=== PATIENT | male | born 1940 | race Caucasian/White ===

== ENCOUNTER 2017-08-01 22:54 | Emergency (ER) | payer SELFPAY ==
[~2017-08-01] VITALS: Ht 170.2 cm; Wt 68.0 kg
[2017-08-02 00:28] LABS: Basophils # (auto) 0 uL; Basophils % (auto) 0.7 % (0.0-2.0); Eosinophils # (auto) 0.2 uL; Eosinophils % (auto) 4.4 % (0.0-7.0); Hematocrit 41.5 % (41.0-53.0); Hemoglobin 13.7 g/dL (13.5-17.5); Lymphocytes # (auto) 1.1 uL; Lymphocytes % (auto) 19.8 % (10.0-50.0); Mean Corpuscular Hgb Conc. 32.9 g/dL (32.0-36.0); Mean Corpuscular Volume 94.4 fL (80.0-100.0); Mean Platelet Volume 6.3 fL (6.9-10.8); Monocytes # (auto) 0.7 uL; Monocytes % (auto) 12.4 % (0.0-12.0); Neutrophils # (auto) 3.4 uL; Neutrophils % (auto) 62.7 % (37.0-80.0); Platelet Count (auto) 294 10^3/uL (140-450); Red Cell Distribution Width 17.7 % (11.8-14.3); White Blood Cell 5.4 10^3/uL (4.4-10.8)
[2017-08-02 00:44] LABS: Albumin 2.8 g/dL (3.4-5.0); Anion Gap 5 (5-15); BUN/Creatinine Ratio 11.7; Blood Urea Nitrogen 13 mg/dL (7-18); Calcium 8.1 mg/dL (8.5-10.1); Carbon Dioxide 30 mmol/L (21-32); Chloride 103 mmol/L (98-107); GFR African American 83 mL/min; GFR Non-African American 68 mL/min; Glucose 140 mg/dL (74-106); Magnesium 2.5 mg/dL (1.6-2.6); Potassium 3.9 mmol/L (3.5-5.1); Sodium 138 mmol/L (136-145)
[2017-08-02 00:48] LABS: INR 0.99 (0.9-1.15); Partial Thromboplastin Time 26.4 sec (22.64-33.71); Prothrombin Time 10.8 sec (9.37-12.3)
[2017-08-02 00:50] LABS: Alkaline Phosphatase 89 U/L (45-117); Aspartate Aminotransferase 22 U/L (15-37); Bilirubin, Total 0.2 mg/dL (0.2-1.0); Total Protein 6.4 g/dL (6.4-8.2)
[2017-08-02 00:54] LABS: B-Type Natriuretic Peptide 75.67 pg/mL (0-100)
[2017-08-02 01:00] LABS: Temperature: 22.1 C (20.0-25.0)
[2017-08-02 05:46] VITALS: BP 173/72
== END 2017-08-02 07:21 | disposition home or self-care (01) ==
LOC: EDBD 22:54 → ER 22:54
DX: J45.901 Unspecified asthma with (acute) exacerbation (principal); R73.9 Hyperglycemia, unspecified; F17.210 Nicotine dependence, cigarettes, uncomplicated
CPT/HCPCS: 36415; 71010; 80053; 83735; 83880; 84484; 85025; 85610; 85730; 93005; 94761

== ENCOUNTER 2019-10-26 19:24 | Inpatient (IN) | payer BC, MEDICAID, OTHER ==
[~2019-10-26] VITALS: Ht 167.6 cm; Wt 71.5 kg
[2019-10-26] MEDS ORDERED: ALBUTEROL SULF 2.5 MG/0.5ML(0.5%) NEB SOLN NEB ONE (20:00)
[2019-10-26] MEDS ORDERED: methylPREDNISolone SOD SUCC 125 MG/2 ML VL IV ONE (20:00)
[2019-10-26] MEDS ORDERED: IPRATROPIUM BROM 0.5 MG/2.5ML INH SOL NEB ONE (20:00)
[2019-10-26 20:24] LABS: Basophils # (auto) 0 10 ^3/uL (0-0.2); Basophils % (auto) 0.6 % (0.0-2.0); Eosinophils # (auto) 0.1 10 ^3/uL (0-0.8); Eosinophils % (auto) 1.5 % (0.0-7.0); Hematocrit 47.4 % (41.0-53.0); Hemoglobin 15.7 g/dL (13.5-17.5); Lymphocytes # (auto) 0.7 10 ^3/uL (0.4-5.4); Lymphocytes % (auto) 9.6 % (10.0-50.0); Mean Corpuscular Hemoglobin 33.1 pg (28.0-32.0); Mean Corpuscular Volume 100.1 fL (80.0-100.0); Monocytes # (auto) 0.7 10 ^3/uL (0-1.3); Monocytes % (auto) 9.6 % (0.0-12.0); Neutrophils # (auto) 5.6 10 ^3/uL (1.6-8.6); Neutrophils % (auto) 78.7 % (37.0-80.0); Nucleated Red Blood Cells % 0.2 %; Platelet Count (auto) 192 10^3/uL (140-450); Red Blood Cells 4.74 10^6/uL (4.5-5.90); Red Cell Distribution Width 13.7 % (11.8-14.3); White Blood Cell 7.1 10^3/uL (4.4-10.8)
[2019-10-26 20:41] LABS: INR 1.13 (0.9-1.15); Partial Thromboplastin Time 25.6 sec (23.64-32.05)
[2019-10-26 21:26] LABS: Albumin 3.4 g/dL (3.4-5.0); Calcium 8.4 mg/dL (8.5-10.1)
[2019-10-26 21:33] LABS: Bilirubin, Total 0.3 mg/dL (0.2-1.0); Total Protein 7.2 g/dL (6.4-8.2)
[2019-10-27] VITALS (8 sets, daily range): BP systolic 118–157; BP diastolic 59–90
[2019-10-27] MEDS ORDERED: TEMAZEPAM 15 MG CAP PO PRN (03:15)
[2019-10-27] MEDS ORDERED: NITROGLYCERIN 0.4 MG SL TAB SL PRN (03:15)
[2019-10-27] MEDS ORDERED: ONDANSETRON HCL 4 MG/2 ML VIAL IV PRN (03:15)
[2019-10-27] MEDS ORDERED: ACETAMINOPHEN 325 MG TAB PO PRN (03:15)
[2019-10-27] MEDS ORDERED: MORPHINE SULF INJ 2 MG/ML SYRINGE 1ML IV PRN (03:15)
[2019-10-27] MEDS ORDERED: MORPHINE SULFATE 4 MG/ML SYR/VIAL IV PRN (03:15)
[2019-10-27] MEDS ORDERED: cloNIDine HCL 0.1 MG TAB PO PRN (03:15)
[2019-10-27] MEDS ORDERED: HYDROcodone-ACET 5/325MG TAB PO PRN (03:15)
--- NOTE | 2019-10-27 04:50 | NUR ---
Telemetry admit from [facility] admitted to Telemetry unit after SBAR received. Patient oriented to GUILLE BRUSH RN primary RN, [facility] unit, room 271, bed B, and unit policies regarding patient care and visiting hours. Patient now on continuous telemetry monitoring, tele box #79 and telemetry reading on arrival to unit is SR. Patient placed on bedside oxygen at 2L via NC, weighed by bedscale and encouraged to call if they need something. All questions and concerns addressed, patient verbalized understanding. Note: HEIMLICH TUBE IN PLACE AND ATTACHED TO OASIS PLEUR EVAC, ATTACHED TO CONTINUOUS SUCTION ORDERED. PATIENT TOLERATING WELL, NO S/S OF DISTRESS OR SOB. WILL CONTINUE TO MONITOR Q1 PRN.
[2019-10-27] MEDS: ALBUTEROL SULF 2.5 MG/0.5ML(0.5%) NEB SOLN NEB SCH ×4 (06:11→22:00)
--- NOTE | 2019-10-27 08:00 | NUR ---
OPENING SHIFT NOTE ASSUMED CARE OF PATIENT AWAKE AND ALERT. NO S/S OF DISTRESS NOTED OR COMPLAINTS OF PAIN. PATIENT IS ON 4L NC SATURATING AT 94% WITH A RESPIRATORY RATE OF 22. PATIENT HAS A URESIL THORAVENT TO HIS LEFT UPPER CHEST HOOKED TO CONTINUOUS SUCTION. PATIENT UPDATED ON POC FOR THE DAY AND ALL QUESTIONS ANSWERED. BED IS IN LOWEST, LOCKED POSITION WITH SIDE RAILS UP X2 AND CALL LIGHT WITHIN REACH. WILL CONTINUE TO MONITOR Q1H AND PRN.
[2019-10-27] MEDS: ASPirin 81 mg TAB PO SCH (09:43)
[2019-10-27] MEDS ORDERED: LISINOPRIL 20 MG TAB PO SCH (10:00)
[2019-10-27] MEDS ORDERED: OPTISON 3ml Vial for INJ IV ONE (11:18)
--- NOTE | 2019-10-27 11:30 | NUR ---
OPTISON OPTISON ECHO PERFORMED AT BEDSIDE WITH ASSOCIATE PARTNER. 1.5ML OF OPTISON GIVEN. NO IMMEDIATE REACTION NOTED. WILL CONTINUE TO MONITOR PATIENT..
--- NOTE | 2019-10-27 14:45 | NUR ---
KAITLIN ANSARI WHILE MOVING PATIENT TO THE WHEELCHAIR TO GO DOWN TO NUC MED HIS CHEST TUBE BECAME DISPLACED SLIGHTLY. NEW DRESSING TEMPORARILY APPLIED AND STAT CHEST XRAY ORDERED. DR AMBROCIO MADE AWARE.
--- NOTE | 2019-10-27 14:55 | NUR ---
AT BEDSIDE DR AMBROCIO AT BEDSIDE UPDATING PATIENT ON POC
[2019-10-27 15:57] LABS: Calcium 8.4 mg/dL (8.5-10.1); Potassium 4.6 mmol/L (3.5-5.1)
[2019-10-27 16:00] LABS: BUN/Creatinine Ratio 24.1; Bilirubin, Total 0.3 mg/dL (0.2-1.0); Total Protein 6.6 g/dL (6.4-8.2)
--- NOTE | 2019-10-27 16:25 | NUR ---
URESIL DRESSING TO LEFT CHEST DEVICE REMOVED, PATIENT'S CHEST SHAVED WITH CLIPPERS, AND NEW ADHESIVE DRESSING APPLIED. PATIENT TOLERATED WELL.
--- NOTE | 2019-10-27 19:10 | NUR ---
Opening Shift Note Assumed care of patient, awake, alert and oriented x4, on 4L of oxygen via NC, no S/S of distress/SOB or pain, patient able to turn independently, bed in lowest locked position, side rails up x2, call light within reach, and . Instructed on POC and to call for assist PRN, will continue to monitor for changes Q1hr and PRN.
[2019-10-27] MEDS ORDERED: IPRATROPIUM BROM 0.5 MG/2.5ML INH SOL ONE (19:20)
[2019-10-27] MEDS ORDERED: ALBUTEROL SULF 2.5 MG/0.5ML(0.5%) NEB SOLN ONE (19:20)
--- NOTE | 2019-10-27 19:50 | NUR ---
OPENING SHIFT NOTE RECEIVED PATIENT AWAKE AND ALERT AND ORIENTED WATCHING TV. COMPLETE PHYSICAL ASSESSMENT DONE: SEE INTERVENTIONS. INSTRUCTED ON POC AND TO CALL FOR ASSISTANCE. PT CONTINUES TO BE ON HFNC TOLERATING WELL. CONTINUE MONITORING. Addendum: 10/29/19 at 0310 by Lydia Villa RN INCORRECT DATE : CORRECT DATE IS 10/28/19
--- NOTE | 2019-10-27 19:55 | NUR ---
KAITLIN CHOW NOTIFIED BY RT DURING BREATHING TREATMENT THAT PATIENT WAS COMPLAINING OF SOB AND IN TRIPOD POSITION. UPON ASSESSING PATIENT, NOTICED CHEST TUBE WAS DISPLACED. CONTACTED MD WALLS, WHO REPOSITIONED CHEST TUBE AND SECURED WITH PRESSURE TAPE. PATIENT TOLERATED WELL, STILL SOB, AWAITING STAT CHEST XR FOR PLACEMENT CONFIRMATION.
--- NOTE | 2019-10-27 20:20 | NUR ---
URESIL THORA-VENT PULLED NOTIFIED BY RT PATIENT APPEARS CONFUSED AND PULLED HIS CHEST TUBE OUT COMPLETELY. XEROFORM DRESSING APPLIED OVER CHEST TUBE SITE ORDERED, PATIENT IN RESPIRATORY DISTRESS AND PLACED ON NON-REBREATHER AT 15LPM. MD WALLS ADVISED TO HAVE PATIENT UPGRADED TO ICU, WILL CONTINUE TO MONITOR AND STAY WITH PATIENT UNTIL HE IS STABLE.
--- NOTE | 2019-10-27 21:15 | NUR ---
TRANSFER TO DAT PATIENT TRANSFERRED TO DAT WITHOUT FURTHER COMPLICATIONS.
--- NOTE | 2019-10-27 21:25 | NUR ---
RECEIVED PT FROM [facility] FLO[facility] ROOM 271B AT APPROXIMATELY 2115 PT IS AWAKE AND ALERT AND ORIENTED X3, REORIENTED TO SITUATION. RT AT BEDSIDE CONNECTING PATIENT TO HIGH FLOW NC : 45L 60% FIO2 COMPLETE PHYSICAL ASSESSMENT DONE: LEFT UPPER CHEST PRESSURE DRESSING INTACT WITH SUBCUTANEOUS EMPHYSEMA NOTED TO LEFT UPPER CLAVICLE. COARSE/CRACKLES TO LEFT UPPER LOBE AUSCULTATED , DIMINISHED TO LOWER LOBE. COMPLETE BED BATH PROVIDED, PT HAD EPISODE OF STOOL INCONTINENCE NOTED, HERVE AREA CLEANSED. SKIN INTACT WITH SCAB TO LEFT LOWER EXTREMITY.COMPLETE BED BATH PERFORMED :PT TOLERATED WELL, AND COMPLETE LINEN CHANGE DONE, NEW GOWN PLACED ON PT. REPOSITIONED PT IN BED FOR COMFORT. NEW IV STARTED TO RIGHT FA 20G, PT TOLERATED WELL. DRESSING CHANGE TO LEFT FA 18G IV. INSTRUCTED PT TO NOT GET OUT OF BED WITHOUT ASSISTANCE AND ON POC. CALL LIGHT GIVEN TO PT. CONTINUE CARE.
[2019-10-27] MEDS: methylPREDNISolone SOD SUCC 40 MG/ML VL IV SCH (22:05)
--- NOTE | 2019-10-27 22:25 | NUR ---
RADIOLOGY CALLED FOR STAT XRAY
[2019-10-28] VITALS (12 sets, daily range): BP systolic 97–144; BP diastolic 43–72
[2019-10-28] MEDS: ALBUTEROL SULF 2.5 MG/0.5ML(0.5%) NEB SOLN NEB SCH ×6 (02:10→22:27)
--- NOTE | 2019-10-28 02:37 | NUR ---
PT CURRENTLY RESTING WITH EYES CLOSED. NO S/S OF DISTRESS OR SOB. CONTINUES TO BE ON HIGH FLOW NC 50L 70%FIO2, SPO2 97%, HR 100. CALL LIGHT WITHIN EASY REACH OF PT ,CONTINUE MONITORING.
[2019-10-28 06:08] LABS: Basophils # (auto) 0 10 ^3/uL (0-0.2); Eosinophils # (auto) 0 10 ^3/uL (0-0.8); Hematocrit 42.5 % (41.0-53.0); Hemoglobin 14.2 g/dL (13.5-17.5); Lymphocytes # (auto) 0.3 10 ^3/uL (0.4-5.4); Lymphocytes % (auto) 2.5 % (10.0-50.0); Mean Corpuscular Hemoglobin 33.7 pg (28.0-32.0); Mean Corpuscular Hgb Conc. 33.5 g/dL (32.0-36.0); Mean Corpuscular Volume 100.7 fL (80.0-100.0); Monocytes # (auto) 0.5 10 ^3/uL (0-1.3); Monocytes % (auto) 4.5 % (0.0-12.0); Neutrophils # (auto) 10.1 10 ^3/uL (1.6-8.6); Platelet Count (auto) 193 10^3/uL (140-450); Red Blood Cells 4.22 10^6/uL (4.5-5.90); Red Cell Distribution Width 13.4 % (11.8-14.3); White Blood Cell 10.9 10^3/uL (4.4-10.8)
[2019-10-28 06:14] LABS: BUN/Creatinine Ratio 30.8; Calcium 8.1 mg/dL (8.5-10.1); Potassium 5.3 mmol/L (3.5-5.1)
[2019-10-28] MEDS: methylPREDNISolone SOD SUCC 40 MG/ML VL IV SCH ×3 (06:15→21:46)
--- NOTE | 2019-10-28 06:48 | NUR ---
END OF SHIFT NOTE PT IS RESTING IN BED AWAKE AND ALERT AND ORIENTED X3 WATCHING TV. NO COMPLAINTS OF PAIN, NO S/S OF DISTRESS/SOB. PT ON HIGH FLOW NC 50L, 55%FIO2, POX READING 97%. PT REMAINED STABLE THROUGH THE NIGHT, CURRENT VS: HR 100, BP 128/68, RR 28. CONTINUE MONITORING AND ENDORSE CARE TO DAY SHIFT RN.
--- NOTE | 2019-10-28 07:35 | NUR ---
Opening Shift Note Assumed care of patient, awake and alertx4, follow direction, lying on the bed, having breathing treatment. No S/S of distress/SOB or pain noted. Patient on High flow O2 55% 50 LPM. Instructed on POC and to call for assist PRN, will continue to monitor for changes Q1hr and PRN.
--- NOTE | 2019-10-28 08:40 | NUR ---
Dr. Nevarez at the bedside, seen and examined patient at this time, plan of care discussed with patient, MD recommend to stop smoking, patient verbalized understanding but doesn't want to stop smoking, patient stated that he smoke 4 cigarette per day. Received new orders with carry out.
[2019-10-28] MEDS ORDERED: SODIUM CHLORIDE 0.9% 1,000 ML IV ONE (08:45)
[2019-10-28] MEDS ORDERED: PIPERACILLIN-TAZOB 3.375GM 100 ML IV SCH (09:00)
--- NOTE | 2019-10-28 09:00 | NUR ---
RT at the bedside after RT reported ABG to Dr. Julian, increased flow to 60 LPM, patient stated that able to tolerated.
--- NOTE | 2019-10-28 09:10 | NUR ---
Dr. Meng at the bedside, seen and examined patient at this time, MD made aware possible won't be able to do CT chest with contrast today, will do CT chest with contrast when patient can wean off the High flow. Received new orders will carry out. Patient made aware.
[2019-10-28] MEDS: ASPirin 81 mg TAB PO SCH (09:12)
[2019-10-28] MEDS: amLODIPine BESYLATE 5 MG TAB PO SCH (09:13)
[2019-10-28] MEDS ORDERED: FUROSEMIDE 20 MG/2 ML VIAL IV ONE (09:15)
--- NOTE | 2019-10-28 09:20 | NUR ---
Respiratory note: FLOW LITERS INCREASED TO 60 PER ORDERS AFTER ABG RESULTS GIVEN. ABG TO BE OBTAINED IN 3 HOURS.
--- NOTE | 2019-10-28 09:29 | NUR ---
IV insertion IV access obtained, via clean sterile technique by inserting 20 gauge catheter at left forearm after 1 attempt. IV secured properly. No trauma to site. Patient tolerated procedure well.
--- NOTE | 2019-10-28 10:20 | NUR ---
After Lasix given , patient been trying using urinal for around 10 minutes, patient stated that cannot passing urine even through standing up, did the bladder scan, got around 550 ml, called and talked to Dr. Nevarez, received order for retain Pollard's catheter, patient agreed with the plan.
--- NOTE | 2019-10-28 10:42 | NUR ---
Elias catheter insertion Patient assessed and determined to be in need of elias catheter. Order obtained from Roque Newton MD. Patient educated on catheter and reason for insertion. All questions answered. Elias catheter 14 guage [place] inserted with clean sterile technique. Patient tolerated well.
--- NOTE | 2019-10-28 10:43 | NUR ---
After Insertion of Pollard's catheter, got urine 600 ml out, with clear, light kimberlee, drain well to bag.
--- NOTE | 2019-10-28 12:40 | NUR ---
Patient sitting up on the edge of the bed for having Lunch.
--- NOTE | 2019-10-28 13:00 | NUR ---
Dr. Julian at the bedside , seen and examined patient at this time, plan of care discussed with patient , patient verbalized understanding and agreed with the plan.
[2019-10-28] MEDS: IPRATROPIUM BROM 0.5 MG/2.5ML INH SOL NEB SCH ×3 (14:09→22:27)
--- NOTE | 2019-10-28 14:20 | NUR ---
Per RT, Dr. Julian made aware about ABG, will continue High flow O2 55% with 60 LPM.
[2019-10-28] MEDS: PIPERACILLIN-TAZOB 3.375GM 100 ML IV SCH ×2 (14:36→21:46)
--- NOTE | 2019-10-28 16:40 | NUR ---
Patient able to take a nap, continue High flow O2 55% with 60 LPM, O2 saturation 95%, HR 80-100/min, no fever , SBP 100-120 mmHg.
--- NOTE | 2019-10-28 18:30 | NUR ---
RT NOTE PT WAS SEEN BY RT FOR HHN TX. PT IS EATING EVENING MEAL. RT WILL RETURN.
--- NOTE | 2019-10-28 19:00 | NUR ---
RT NOTE PT WAS SEEN BY RT FOR HIGH FLOW ASSESSMENT AND HHN TX. PT TOLERATES TX WELL VIA MASK. NO ADVERSE REACTION NOTED. CONT ORDERED Addendum: 10/28/19 at 1922 by Janet Sanchez RT Amended: Links added.
--- NOTE | 2019-10-28 19:50 | NUR ---
OPENING SHIFT NOTE RECEIVED PATIENT AWAKE AND ALERT AND ORIENTED WATCHING TV. COMPLETE PHYSICAL ASSESSMENT DONE: SEE INTERVENTIONS. INSTRUCTED ON POC AND TO CALL FOR ASSISTANCE. PT CONTINUES TO BE ON HFNC TOLERATING WELL. CONTINUE MONITORING.
--- NOTE | 2019-10-28 20:20 | NUR ---
PT'S FRIEND CHA IN TO VISIT PT
--- NOTE | 2019-10-28 20:50 | NUR ---
UPDATED PT'S FRIEND CHA ON POC AND PT STATUS WHO IS AT BEDSIDE PER PT REQUEST
--- NOTE | 2019-10-28 22:27 | NUR ---
RT NOTE ROUTINE HIGH FLOW CHECK DONE. HHN GIVEN AT THIS TIME WITHOUT ADVERSE REACTION NOTED. CONT ORDERED Addendum: 10/29/19 at 0007 by Janet Sanchez RT Amended: Links added.
[2019-10-29] VITALS (13 sets, daily range): BP systolic 109–151; BP diastolic 63–86
--- NOTE | 2019-10-29 00:53 | NUR ---
PAIN: Pt c/o pain at level 6/10 in chest/abdominal area d/t coughing. Pt requesting medication for pain. Pt medicated w/ Watkins 5/325mg PO. To continue to monitor pt.
[2019-10-29] MEDS: ALBUTEROL SULF 2.5 MG/0.5ML(0.5%) NEB SOLN NEB SCH ×6 (02:06→22:17)
--- NOTE | 2019-10-29 02:15 | NUR ---
RT NOTE ROUTINE HIGH FLOW CHECK DONE. HHN GIVEN AT THIS TIME WITHOUT ADVERSE REACTION NOTED. CIRCUIT CHANGED THIS TIME, APPEARS DEFECTIVE. CHLOE WATER ALSO CHANGED AT THIS TIME. CONT ORDERED Addendum: 10/29/19 at 0246 by Janet Sanchez RT Amended: Links added.
[2019-10-29] MEDS: PIPERACILLIN-TAZOB 3.375GM 100 ML IV SCH ×4 (02:36→21:07)
--- NOTE | 2019-10-29 03:00 | NUR ---
AM CARE COMPLETE BED BATH PROVIDED USING CHG WIPES AND WARM WASH CLOTHS. SKIN REASSESSED WITH NO CHANGES NOTED. PT HAD A BOWEL MOVEMENT IN BED, PERINEAL AREA CLEANSED. COMPLETE LINEN CHANGE DONE , NEW GOWN PLACED ON PT. PT REPOSITIONED SELF IN BED FOR COMFORT. CALL LIGHT GIVEN TO PT AND INSTRUCTED TO CALL FOR ASSISTANCE.
[2019-10-29] MEDS: methylPREDNISolone SOD SUCC 40 MG/ML VL IV SCH ×3 (05:19→21:08)
[2019-10-29] MEDS: IPRATROPIUM BROM 0.5 MG/2.5ML INH SOL NEB SCH ×5 (06:37→22:17)
--- NOTE | 2019-10-29 07:30 | NUR ---
Opening Shift Note Assumed care of patient, awake and alert, lying on the bed, watching TV. No S/S of distress/SOB or pain noted, on HF O2 55% flow 60 LPM, O2 saturation 96-98%, still coughing, patient stated that sometimes coughing with old blood (small amount). Instructed on POC and to call for assist PRN, will continue to monitor for changes Q1hr and PRN. Puncture site at left upper chest still cover with pressure dressing, no subcutaneous emphysema noted.
--- NOTE | 2019-10-29 08:20 | NUR ---
Dr. Nevarez at the bedside, seen and examined patient at this time, plan of care discussed with patient, will continue to monitor in DAT, will cancel CT chest with contrast at this time. Patient made aware, verbalized understanding.
--- NOTE | 2019-10-29 08:28 | NUR ---
Dr. Meng at the bedside, seen and examined patient at this time, MD made aware that will cancel CT chest with contrast at this time, received order for BMP now. Will carry out, patient made aware.
[2019-10-29] MEDS: ASPirin 81 mg TAB PO SCH (08:48)
[2019-10-29] MEDS: amLODIPine BESYLATE 5 MG TAB PO SCH (08:49)
--- NOTE | 2019-10-29 08:56 | NUR ---
Patient had around 100% of breakfast, no N/V noted. Still coughing with non productive.
--- NOTE | 2019-10-29 11:36 | NUR ---
O2 saturation 95-98% with HF O2 45% 60 LPM. patient resting on the bed.
--- NOTE | 2019-10-29 11:55 | NUR ---
Patient complaining of pain when coughing, patient refused to take Augusta (will return medication), patient stated that will try Tylenol at this time.
[2019-10-29] MEDS ORDERED: FUROSEMIDE 20 MG TAB PO ONE (12:00)
[2019-10-29] MEDS ORDERED: MORPHINE SULF INJ 2 MG/ML SYRINGE 1ML IV PRN (12:00)
--- NOTE | 2019-10-29 12:45 | NUR ---
Patient sitting at the edge of the bed for having Lunch.
--- NOTE | 2019-10-29 13:00 | NUR ---
Lisa SONG LYRICIST at the bedside, seen and examined patient at this time, will continue to monitor, no new order at this time.
--- NOTE | 2019-10-29 14:00 | NUR ---
Dr. Julian seen patient at this time, discussed with RT as well. No new order at this time.
--- NOTE | 2019-10-29 14:56 | NUR ---
assessment Patient is a 79 year old male who is alert and oriented. Patients cognitive abilities are intact. Prior to admission patient lived home alone on friends property and functioned independently. Patient informed me he is able to care for his own ADLs. Per patient he will return home to his prior living arrangements post discharge and family will transport him home. Patient informed me he has home 02. Patient informed me his PCP is Dr Lara. Patients post discharge needs to be determined prior to discharge. I informed patient he has a right to speak to a older adult social work specialist regarding all care. I informed patient he has a right to participate in any and all discharge planning. Patient does not have a POA and advanced directive. I have offered patient information on POA and advanced directives. I informed the patient the advantages and benefits of having an Advanced Directive. Patient verbalized understanding and agreed to discharge plan. Addendum: 10/29/19 at 1459 by Erika PETERSEN Amended: Links added.
--- NOTE | 2019-10-29 18:45 | NUR ---
RT NOTE ROUTINE HFNC CHECK DONE. WATER CHANGED AT THIS TIME WITHOUT INCIDENT. HHN GIVEN VIA MASK WITHOUT ADVERSE REACTION NOTED. CONT ORDERED Addendum: 10/29/19 at 1942 by Janet Sanchez RT Amended: Links added.
--- NOTE | 2019-10-29 19:05 | NUR ---
OPENING NOTE RECEIVED REPORT ON FULL CODE ICU PATIENT. AOX4, FOLLOWING COMMANDS. ON HIGH FLOW 02 40% FIO2 50LPM STATING >95% SPO2 ON BEDSIDE MONITOR. NO COMPLAINTS OF SOB. NSR 80-90'S WITH PVC'S, SBP 140'S ON NO PRESSURES. NO COMPLAINTS OF PAIN. LOPEZ PATENT DRAINING TO GRAVITY. LEFT CHEST DRESSING CDI. BOTH IV'S CDI AND PATENT. CALL LIGHT PLACED WITHIN REACH OF PATIENT AND INSTRUCTED TO CALL WHEN IN NEED OF ASSISTANCE. ALL FALL AND SAFETY PRECAUTIONS IN PLACE.
--- NOTE | 2019-10-29 21:41 | NUR ---
BM CLEANED ONE LARGE BM CLEANED. COMPLETE LINEN BED CHANGE. CLEANED WITH SOAP AND WATER. SKIN REASSESSED AND NO NEW BREAK DOWN NOTED. PATIENT TOLERATED TURN WELL. VSS.
--- NOTE | 2019-10-29 22:15 | NUR ---
RT NOTE ROUTINE HFNC CHECK DONE. WATER CHANGED AT THIS TIME WITHOUT INCIDENT. HHN GIVEN VIA MASK WITHOUT ADVERSE REACTION NOTED. CONT ORDERED Addendum: 10/29/19 at 2350 by Janet Sanchez RT Amended: Links added.
[2019-10-30] VITALS (11 sets, daily range): BP systolic 124–157; BP diastolic 65–91
--- NOTE | 2019-10-30 02:08 | NUR ---
RT NOTE ROUTINE HFNC CHECK DONE. HHN GIVEN VIA MASK WITHOUT ADVERSE REACTION NOTED. CONT ORDERED
--- NOTE | 2019-10-30 02:08 | NUR ---
RT NOTE ROUTINE HFNC CHECK DONE. HHN GIVEN VIA MASK WITHOUT ADVERSE REACTION NOTED. NASAL CANNULA FLOW TITRATED TO 45L AND FIO2 TITRATED TO 35%, KATHLEEN PEARCE NOTIFIED. CONT ORDERED Addendum: 10/30/19 at 0314 by Janet Sanchez RT Amended: Links added.
[2019-10-30] MEDS: ALBUTEROL SULF 2.5 MG/0.5ML(0.5%) NEB SOLN NEB SCH ×6 (02:13→22:00)
[2019-10-30] MEDS: PIPERACILLIN-TAZOB 3.375GM 100 ML IV SCH ×4 (03:16→23:35)
--- NOTE | 2019-10-30 04:27 | NUR ---
BM ONE MEDIUM BM CLEANED. PARTIAL LINEN CHANGE. CLEANED WITH SOAP AND WATER. SKIN REASSESSED AND NO NEW BREAK DOWN NOTED. PATIENT TOLERATED TURN WELL. VSS.
[2019-10-30 05:22] LABS: Basophils # (auto) 0 10 ^3/uL (0-0.2); Eosinophils # (auto) 0 10 ^3/uL (0-0.8); Hematocrit 43.5 % (41.0-53.0); Hemoglobin 14.7 g/dL (13.5-17.5); Lymphocytes # (auto) 0.3 10 ^3/uL (0.4-5.4); Lymphocytes % (auto) 2.6 % (10.0-50.0); Mean Corpuscular Hemoglobin 33.5 pg (28.0-32.0); Mean Corpuscular Hgb Conc. 33.7 g/dL (32.0-36.0); Mean Corpuscular Volume 99.3 fL (80.0-100.0); Monocytes # (auto) 0.6 10 ^3/uL (0-1.3); Monocytes % (auto) 4.5 % (0.0-12.0); Neutrophils # (auto) 11.4 10 ^3/uL (1.6-8.6); Neutrophils % (auto) 92.9 % (37.0-80.0); Nucleated Red Blood Cells % 0.2 %; Platelet Count (auto) 194 10^3/uL (140-450); Red Blood Cells 4.38 10^6/uL (4.5-5.90); Red Cell Distribution Width 13.2 % (11.8-14.3); White Blood Cell 12.3 10^3/uL (4.4-10.8)
[2019-10-30 05:49] LABS: BUN/Creatinine Ratio 33.6; Calcium 8.1 mg/dL (8.5-10.1); Magnesium 2.2 mg/dL (1.6-2.6); Potassium 4.9 mmol/L (3.5-5.1)
[2019-10-30] MEDS: methylPREDNISolone SOD SUCC 40 MG/ML VL IV SCH ×3 (05:59→23:35)
[2019-10-30] MEDS: IPRATROPIUM BROM 0.5 MG/2.5ML INH SOL NEB SCH ×5 (06:25→21:58)
--- NOTE | 2019-10-30 07:30 | NUR ---
RECEIVED PATIENT SITTING UP IN THE BED, SLEEPING BUT AWAKEN TO NAME BEING CALLED A/O TIMES 4, O2 AT 40L AND 30% BY THE HIGH FLOW, LOPEZ TO GRAVITY, LFA 20G SALINE LOCK FLUSHED AND PATENT, RFA 18G SALINE LOCK FLUSHED AND PATENT, DENIES PAIN,
--- NOTE | 2019-10-30 08:30 | NUR ---
SAT UP ON THE SIDE OF THE BED AND ATE HIS BREAKFAST
--- NOTE | 2019-10-30 09:29 | NUR ---
LYING IN BED WATCHING TV, NO COMPLAINTS
--- NOTE | 2019-10-30 10:10 | NUR ---
DISCUSSED MEDICATIONS WITH THE PATIENT REGARDING THE DOSAGE, USAGE AND THE SIDE EFFECTS, VERBALIZED THAT HE UNDERSTOOD AND THAT HE TAKES 500MG OF ASPIRIN AT HOME , EXPRESS TO HIM THAT WAS TO MUCH AND HE NEEDS TO TALK TO HIS DOCTOR ABOUT THAT
[2019-10-30] MEDS: ASPirin 81 mg TAB PO SCH (10:13)
[2019-10-30] MEDS: amLODIPine BESYLATE 5 MG TAB PO SCH (10:14)
--- NOTE | 2019-10-30 10:55 | NUR ---
RT MAC WORKING WITH THE PATIENT CHANGED THE HIGH FLOW SETTING TO 30L AND 30%
--- NOTE | 2019-10-30 11:05 | NUR ---
HAD A BM , USED THE BEDPAN
--- NOTE | 2019-10-30 11:53 | NUR ---
WATCHING TV, DENIES PAIN AND SOB
--- NOTE | 2019-10-30 12:30 | NUR ---
SAT UP ON THE SIDE OF THE BED AND ATE HIS LUNCH NO HELP NEEDED
--- NOTE | 2019-10-30 13:00 | NUR ---
DR AMBROCIO IN TO SEE THE PATIENT
--- NOTE | 2019-10-30 14:30 | NUR ---
PATIENT HAD A BM IN THE BED STATES HE DOESN'T KNOW WHEN HE IS GOING TO HAVE A BM IS JUST COMES
--- NOTE | 2019-10-30 15:12 | NUR ---
Nutrition Assessment Notes Please refer to link for full assessment notes. Est energy needs: 9085-5338 kcals (23-25 kcal/kgBW) Est protein needs: 72-79 gms/day (1.0-1.1 gm/kgBW) Will continue to monitor and reassess prn. Addendum: 10/30/19 at [address] Amended: Links added.
--- NOTE | 2019-10-30 15:34 | NUR ---
PATIENT SITTING UP IN THE BED, WATCHING TV
--- NOTE | 2019-10-30 16:30 | NUR ---
EYES CLOSED APPEARS TO BE SLEEPING
--- NOTE | 2019-10-30 17:48 | NUR ---
LYING IN BED EYES CLOSED APPEARS TO BE SLEEPING
--- NOTE | 2019-10-30 18:22 | NUR ---
PATIENT SITTING UP ON THE SIDE OF THE BED TO EAT HIS DINNER, STILL ON THE HIGH FLOW AT 30L AND 30%, LOPEZ TO GRAVITY, A/O, NO COMPLAINTS OF PAIN OR SOB, 20G TO THE LFA INTACT AND PATENT AND RFA 18G FLUSHED AND PATENT WILL CONTINUE TO MONITOR AND GIVE REPORT TO THE NEXT SHIFT
--- NOTE | 2019-10-30 22:01 | NUR ---
Opening Shift Note Assumed care of patient, awake and alert. No S/S of distress/SOB or pain. Instructed on POC and to call for assist PRN, will continue to monitor for changes. Pt resting in bed and watching TV.
[2019-10-31] VITALS (9 sets, daily range): BP systolic 134–165; BP diastolic 63–89
[2019-10-31] MEDS: ALBUTEROL SULF 2.5 MG/0.5ML(0.5%) NEB SOLN NEB SCH ×6 (01:56→23:04)
[2019-10-31] MEDS: PIPERACILLIN-TAZOB 3.375GM 100 ML IV SCH ×4 (03:00→23:40)
--- NOTE | 2019-10-31 07:30 | NUR ---
RECEIVED PATIENT LYING IN BED SEMI FOWLERS POSITION, O2 BY THE HIGH FLOW AT 25L 30%, A/O TIMES 4, SALINE LOCK TO THE LFA 20G AND THE RFA 18G BOTH FLUSHED AND PATENT, LOPEZ TO GRAVITY, DENIES PAIN
[2019-10-31] MEDS: IPRATROPIUM BROM 0.5 MG/2.5ML INH SOL NEB SCH ×5 (07:31→23:04)
--- NOTE | 2019-10-31 08:20 | NUR ---
DR AMBROCIO IN TO SEE THE PATIENT AND STATED TO TAKE HIM OFF THE HIGH FLOW AND PUT HIM ON THE OXYMIZER AT 6L, AND MOVE HIM TO TELE, AND FOR RT TO CALL HIM AND LET HIM KNOW HOW HE DOES ON THE OXYMIZER
--- NOTE | 2019-10-31 08:20 | NUR ---
SPOKE TO Kena QUINTERO REGARDING TITRATING PT OFF HIGH FLOW NASAL CANNULA. MD AWARE THAT PT CANNOT BE TITRATED AT THIS TIME, PT IS ON 25 LPM, 30% FIO2 HIGH FLOW NASAL CANNULA, SPO2 91%. MD AWARE THIS RT WILL ATTEMPT TO WEAN OXYGEN SETTINGS.
--- NOTE | 2019-10-31 08:30 | NUR ---
PATIENT SAT UP ON THE SIDE OF THE BED AND ATE HIS BREAKFAST
--- NOTE | 2019-10-31 09:00 | NUR ---
HAD A BM IN THE BED AND NOTIFIED US THAT HE HAD DONE SO, LEXUS CLEANED, EXPRESS TO THE PATIENT THAT HE NEEDS TO TELL US SO WE CAN PUT HIM ON THE BEDPAN
--- NOTE | 2019-10-31 09:44 | NUR ---
DR GARDINER IN TO SEE THE PATIENT AND STATED HIS KIDNEYS ARE DOING OKAY
[2019-10-31] MEDS: methylPREDNISolone SOD SUCC 40 MG/ML VL IV SCH (09:56)
--- NOTE | 2019-10-31 09:56 | NUR ---
discussed mediations with the patient regarding the dosage, usage and the side effects, verbalized he understood and meds given as ordered
[2019-10-31] MEDS: amLODIPine BESYLATE 5 MG TAB PO SCH (09:57)
[2019-10-31] MEDS: ASPirin 81 mg TAB PO SCH (09:58)
--- NOTE | 2019-10-31 10:25 | NUR ---
breathing treatment being done
[2019-10-31 11:00] LABS: Calcium 8.1 mg/dL (8.5-10.1); Potassium 4.9 mmol/L (3.5-5.1)
--- NOTE | 2019-10-31 11:00 | NUR ---
PER DR LOLLY GAINES THE TRANSFER TO TELE
[2019-10-31 11:09] LABS: BUN/Creatinine Ratio 29.8
--- NOTE | 2019-10-31 11:10 | NUR ---
CALL FROM THE LAB AND STATED THAT THE PATIENT'S BS WAS 510, AND CHECKED WITH A FINGER STICK WAS 417
--- NOTE | 2019-10-31 11:15 | NUR ---
NOTIFIED DR AMBROCIO OF THE BS RESULTS AND STATED TO START THE PATIENT ON AN AGGRESSIVE SLIDING SCALE AND STOP THE SOLU MEDROL, ORDERS CARRIED OUT
[2019-10-31] MEDS ORDERED: DEXTROSE (50%) 50ML SYRG IV PRN (11:30)
[2019-10-31] MEDS: InsuLIN REG 1unit/0.01ml Soln (100units/ml) SC SCH ×3 (12:00→23:45)
[2019-10-31] MEDS: ACCU-CHEK COMFORT CURVE STRIP VI SCH ×3 (12:00→23:40)
--- NOTE | 2019-10-31 12:47 | NUR ---
BS 434 , GAVE INSULIN 20 UNITS REGULAR INSULIN ORDERED AND DR AMBROCIO WAS MADE AWARE
--- NOTE | 2019-10-31 12:48 | NUR ---
SITTING UP ON THE SIDE OF THE BED EATING HIS LUNCH
--- NOTE | 2019-10-31 13:31 | NUR ---
ATE HIS LUNCH AND TOLERATED, LYING IN BED WITH EYES CLOSED
--- NOTE | 2019-10-31 14:10 | NUR ---
DR WALLS IN TO SEE THE PATIENT
--- NOTE | 2019-10-31 14:45 | NUR ---
WATER CHLOE CHANGED.
--- NOTE | 2019-10-31 15:43 | NUR ---
WATCHING TV, ASKING FOR MILK TO DRINK
--- NOTE | 2019-10-31 16:33 | NUR ---
CAUGHT PATIENT EATING SUGAR PACKETS HE HAD HIDDEN IN THIS BEDSIDE TABLE
--- NOTE | 2019-10-31 16:50 | NUR ---
SITTING UP IN BED WATCHNG TV, AFTER EATING HIS JELL-O
--- NOTE | 2019-10-31 17:57 | NUR ---
FAMILY AT THE BEDSIDE, NO COMPLAINTS
--- NOTE | 2019-10-31 18:06 | NUR ---
SITTING UP ON THE SIDE OF THE BED, EATING HIS DINNER, NO HELP NEEDED, LFA 20G AND RFA 18G, SALINE LOCK BOTH FLUSHED AND PATENT, O2 BY THE HIGH FLOW AT 25L AND 30%, LOPEZ TO GRAVITY, NO COMPLAINTS OF PAIN Addendum: 10/31/19 at 1813 by Angela Serra RN WILL CONTINUE TO MONITOR AN GIVE REPORT TO THE NEXT SHIFT
[2019-11-01] VITALS (10 sets, daily range): BP systolic 129–156; BP diastolic 63–90
[2019-11-01] MEDS: PIPERACILLIN-TAZOB 3.375GM 100 ML IV SCH ×4 (02:00→22:32)
[2019-11-01] MEDS: ALBUTEROL SULF 2.5 MG/0.5ML(0.5%) NEB SOLN NEB SCH ×6 (02:26→23:05)
[2019-11-01] MEDS: IPRATROPIUM BROM 0.5 MG/2.5ML INH SOL NEB SCH ×6 (02:26→23:05)
[2019-11-01 05:59] LABS: Potassium 4.2 mmol/L (3.5-5.1)
[2019-11-01] MEDS: ACCU-CHEK COMFORT CURVE STRIP VI SCH ×3 (06:00→18:21)
[2019-11-01] MEDS: InsuLIN REG 1unit/0.01ml Soln (100units/ml) SC SCH ×3 (06:00→18:15)
[2019-11-01 06:13] LABS: BUN/Creatinine Ratio 30.3
--- NOTE | 2019-11-01 07:45 | NUR ---
OPENING SHIFT NOTE REPORT RECEIVED FROM DIRECTOR TRAFFIC AND PLANNING RN, MORNING ASSESSMENT PERFORMED AND DOCUMENTED. 79 YEAR OLD MALE, ALERT AND ORIENTED X4, NO DISTRESS NOTED, RESPIRATIONS EVEN AND UNLABORED. PATIENT DENIES PAIN OR DISCOMFORT AT THIS TIME. PHYSICAL ASSESSMENT PERFORMED AND DOCUMENTED, LOPEZ CATHETER DRAINING TO GRAVITY CLEAR, LIGHT [place]RI[place] URINE. FALL AND SAFETY PRECAUTIONS IN PLACE.
[2019-11-01] MEDS: ASPirin 81 mg TAB PO SCH (09:20)
[2019-11-01] MEDS: amLODIPine BESYLATE 5 MG TAB PO SCH (09:22)
--- NOTE | 2019-11-01 10:00 | NUR ---
HOSPITALIST AT BEDSIDE DR Kena AMBROCIO UPDATED ON PATIENT'S STATUS AND OXYGEN NEED. NO ORDERS GIVEN AT THIS TIME.
--- NOTE | 2019-11-01 17:30 | NUR ---
PULMONOLOGY AT BEDSIDE DR WALLS UPDATED ON PATIENT'S STATUS AND HIGH BIANCA SETTINGS. NO ORDERS GIVEN AT THIS TIME, DR WALLS STATED "OK TO TRY TO TITRATE TOMORROW".
--- NOTE | 2019-11-01 18:47 | NUR ---
COMFORT PATIENT CLEANSED OF MODERATE SIZE DARK BROWN STOOL. PATIENT ABLE TO TURN SELF AND ASSIST NURSE. PATIENT TOLERATED WELL, CALL LIGHT AND ALL PERSONAL BELONGINGS WITHIN REACH, FALL AND SAFETY PRECAUTIONS IN PLACE. WILL CONTINUE TO MONITOR.
--- NOTE | 2019-11-01 19:29 | NUR ---
END OF SHIFT NOTE PATIENT ON HIGH BIANCA - ALERT AND ORIENTED X4, NO DISTRESS NOTED, RESPIRATIONS EVEN AND UNLABORED. PATIENT DENIES PAIN OR DISCOMFORT THROUGHOUT SHIFT. PATIENT WATCHING TELEVISION, ENDORSED CONTINUED CARE TO GARDENING INSTRUCTOR RN.
[2019-11-02] VITALS (9 sets, daily range): BP systolic 117–147; BP diastolic 67–98
[2019-11-02] MEDS: PIPERACILLIN-TAZOB 3.375GM 100 ML IV SCH ×3 (01:42→15:07)
--- NOTE | 2019-11-02 03:45 | NUR ---
Pt states feels short of breath, however it is not noted in pulse ox or noted in any kind of labored breathing. RT called and they came and turned up the Hi Flow a bit for comfort. Pt stated he felt better.
[2019-11-02 05:26] LABS: Mean Corpuscular Hemoglobin 33.5 pg (28.0-32.0); Mean Corpuscular Volume 98.4 fL (80.0-100.0); Platelet Count (auto) 192 10^3/uL (140-450); Red Blood Cells 5.08 10^6/uL (4.5-5.90); Red Cell Distribution Width 13.3 % (11.8-14.3); White Blood Cell 9.8 10^3/uL (4.4-10.8)
[2019-11-02 05:43] LABS: Potassium 4.6 mmol/L (3.5-5.1)
[2019-11-02 05:45] LABS: Band Neutrophils % (manual) 0; Basophils % (manual) 0 (0.0-2.0); Blast Cells 0; Metamyelocytes % 0; Myelocytes % 0; Promyelocytes % 0; Reactive Lymphocytes 0
[2019-11-02 05:48] LABS: Albumin 2.5 g/dL (3.4-5.0); BUN/Creatinine Ratio 24.8; Calcium 8.2 mg/dL (8.5-10.1)
[2019-11-02 05:59] LABS: Bilirubin, Total 0.8 mg/dL (0.2-1.0)
[2019-11-02] MEDS: InsuLIN REG 1unit/0.01ml Soln (100units/ml) SC SCH ×4 (06:00→18:09)
[2019-11-02] MEDS: ACCU-CHEK COMFORT CURVE STRIP VI SCH ×4 (06:00→18:00)
--- NOTE | 2019-11-02 06:30 | NUR ---
Pt states sore throat. Will report to AM shift to follow up with MD.
--- NOTE | 2019-11-02 07:00 | NUR ---
Pt has remained stable this shift. No S/S of distress. Pt ate mult jello and had water and 2 milks this shift. Report given to AM shift, care endorsed.
[2019-11-02 07:18] LABS: Eosinophils % (manual) 2 (0-7); Lymphocytes % (manual) 16 (10.0-50.0); Monocytes % (manual) 9 (0-12)
--- NOTE | 2019-11-02 07:30 | NUR ---
RECEIVED PATIENT SITTING UP IN TH BED, A/O TINES 4, O2 BY THE HIGH FLOW AT 40L AND 30% LOPEZ TO GRAVITY, NS INFUSING INTO THE RFA 18G SALINE LOCK A TKO BY THE IV PUMP, DENIES PAIN , STATE HE IS HUNGRY AND READY TO EAT
--- NOTE | 2019-11-02 07:50 | NUR ---
BEING CLEANED HAD A BM IN THE BED, STATES HE DOESN'T KNOW HE IS GOING
--- NOTE | 2019-11-02 08:00 | NUR ---
DR AMBROCIO IN TO SEE THE PATIENT
[2019-11-02] MEDS: ALBUTEROL SULF 2.5 MG/0.5ML(0.5%) NEB SOLN NEB SCH ×5 (08:04→21:24)
[2019-11-02] MEDS: IPRATROPIUM BROM 0.5 MG/2.5ML INH SOL NEB SCH ×5 (08:04→21:24)
--- NOTE | 2019-11-02 08:20 | NUR ---
SAT UP ON THE SIDE OF THE BED TO EAT HIS BREAKFAST, NO HELP NEEDED
--- NOTE | 2019-11-02 08:43 | NUR ---
SITTING UP IN THE BED WATCHING TV
[2019-11-02] MEDS: ASPirin 81 mg TAB PO SCH (09:36)
[2019-11-02] MEDS: amLODIPine BESYLATE 5 MG TAB PO SCH (09:36)
--- NOTE | 2019-11-02 09:36 | NUR ---
DISCUSSED MEDICATIONS WITH THE PATIENT REGARDING THEE DOSAGE, USAGE AND THE SIDE EFFECTS, VERBALIZED HE UNDERSTOOD AND MEDS GIVEN ORDERED
--- NOTE | 2019-11-02 10:30 | NUR ---
SITTING UP IN BED WATCHING TV,, DENIES PAIN
--- NOTE | 2019-11-02 11:50 | NUR ---
HIGH FLOW TURNED DOWN 35L AND 30%, PATIENT WATCHNG TV
--- NOTE | 2019-11-02 12:30 | NUR ---
SITTING UP IN BED EATING HIS LUNCH
--- NOTE | 2019-11-02 13:05 | NUR ---
PATIENT HAD A BM IN THE BED
--- NOTE | 2019-11-02 13:38 | NUR ---
SITTING UP IN BED WATCHING TV
--- NOTE | 2019-11-02 14:21 | NUR ---
SITTING UP IN THE BED WITH EYES CLOSED
--- NOTE | 2019-11-02 14:39 | NUR ---
1430 11/02/19 I received a message from [facility] Quality Control Technician Janeen letting me know that this patient belongs to their medical group and they are requesting that care of patient be transferred to Dr. Roque. I called Dr. Aman Nevarez and made him aware.
--- NOTE | 2019-11-02 17:00 | NUR ---
DR SLOAN IN TO SEE THE PATIENT AND WROTE NEW ORDERS
[2019-11-02] MEDS ORDERED: guaiFENesin 200 MG/10 ML UD PO PRN (17:15)
[2019-11-02] MEDS ORDERED: levoFLOXacin 500 MG TAB PO ONE (17:15)
--- NOTE | 2019-11-02 17:20 | NUR ---
DR WALLS IN TO SEE THE PATIENT
--- NOTE | 2019-11-02 17:20 | NUR ---
Respiratory note: AT BEDSIDE WITH MD WALLS AND KATHLEEN Mauro TITRATED PT TO 8LPM OXYMIZER FROM HFNC (35LPM/ 35% FIO2). PT TOLERATING WELL POX 96-98% ON OXYMIZER WILL CONTINUE TO MONITOR.
--- NOTE | 2019-11-02 17:25 | NUR ---
CHEST X-RAY DONE
--- NOTE | 2019-11-02 18:18 | NUR ---
SITTING UP IN BED EATING HIS DINNER, A/O TIMES 4, LOPEZ TO GRAVITY, SALINE LOCK 18G TO THE LFA INTACT FLUSHED AND PATENT, O2 BY THE OXYMIZER AT 8L WITH O2 SAT OF 96%, NO COMPLAINTS OF PAIN OR SOB, WILL CONTINUE TO MONITOR AND GIVE REPORT TO THE NEXT SHIFT
[2019-11-02] MEDS: BUDESONIDE (INHALATION) 0.5 MG/2 ML NEB NEB SCH (19:03)
--- NOTE | 2019-11-02 20:00 | NUR ---
SHIFT OPENING NOTE RECEIVED PATIENT AWAKE, ALERT AND ORIENTED X4. NO SOB, DISTRESS OR PAIN NOTED. ON 4L OXYMIZER POX 95%. LOPEZ CATH DRAINING PINK TINGED YELLOW URINE TO GRAVITY. PHYSICAL ASSESSMENT COMPLETED, SEE INTERVENTIONS. INSTRUCTED ON POC AND TO CALL FOR ASSIST NEEDED. BED IS IN THE LOWEST POSITION WITH SIDE RAILS UP X2, CALL LIGHT IS WITHIN REACH.
[2019-11-02] MEDS: HEPARIN SODIUM (PORCINE) 5000 UNITS/ML 1ML VIAL SC SCH (21:46)
[2019-11-03] VITALS (7 sets, daily range): BP systolic 122–140; BP diastolic 62–89
[2019-11-03] MEDS: ACCU-CHEK COMFORT CURVE STRIP VI SCH ×4 (00:58→18:05)
[2019-11-03] MEDS: InsuLIN REG 1unit/0.01ml Soln (100units/ml) SC SCH ×4 (00:59→18:20)
--- NOTE | 2019-11-03 02:00 | NUR ---
ROUNDS PATIENT IS QUIETLY LAYING IN BED SLEEPING. NO SOB, DISTRESS OR PAIN NOTED. ON 5L OXYMIZER. WILL CONTINUE TO CLOSELY MONITOR.
--- NOTE | 2019-11-03 04:45 | NUR ---
MORNING HYGIENE CARE FULL BED BATH PERFORMED USING CHG WIPES. GOWN CHANGED. FULL LINEN CHANGE. PATIENT REPOSITIONED FOR COMFORT. TOLERATED IT WELL.
[2019-11-03 06:16] LABS: Calcium 7.9 mg/dL (8.5-10.1); Potassium 4.1 mmol/L (3.5-5.1)
[2019-11-03 06:22] LABS: Basophils # (auto) 0 10 ^3/uL (0-0.2); Basophils % (auto) 0.1 % (0.0-2.0); Eosinophils # (auto) 0.4 10 ^3/uL (0-0.8); Hematocrit 44.9 % (41.0-53.0); Hemoglobin 15.3 g/dL (13.5-17.5); Lymphocytes # (auto) 1.1 10 ^3/uL (0.4-5.4); Mean Corpuscular Hemoglobin 33.2 pg (28.0-32.0); Mean Corpuscular Volume 97.6 fL (80.0-100.0); Monocytes # (auto) 0.6 10 ^3/uL (0-1.3); Monocytes % (auto) 7.5 % (0.0-12.0); Neutrophils # (auto) 6.2 10 ^3/uL (1.6-8.6); Neutrophils % (auto) 74.4 % (37.0-80.0); Platelet Count (auto) 176 10^3/uL (140-450); Red Cell Distribution Width 13.3 % (11.8-14.3); White Blood Cell 8.3 10^3/uL (4.4-10.8)
[2019-11-03 06:29] LABS: Albumin 2.3 g/dL (3.4-5.0); Bilirubin, Total 0.4 mg/dL (0.2-1.0); Magnesium 2.3 mg/dL (1.6-2.6); Total Protein 5.5 g/dL (6.4-8.2)
[2019-11-03 06:39] LABS: BUN/Creatinine Ratio 27.6
[2019-11-03] MEDS: IPRATROPIUM BROM 0.5 MG/2.5ML INH SOL NEB SCH ×4 (07:14→18:15)
[2019-11-03] MEDS: ALBUTEROL SULF 2.5 MG/0.5ML(0.5%) NEB SOLN NEB SCH ×5 (07:14→18:17)
--- NOTE | 2019-11-03 07:15 | NUR ---
END OF SHIFT PATIENT IS LAYING IN BED WATCHING TV. NO SOB, DISTRESS OR PAIN NOTED. REPORT GIVEN AND CARE ENDORSED TO BROCK WANG.
--- NOTE | 2019-11-03 07:30 | NUR ---
Opening Shift Note Assumed care of patient, awake and alert, sitting at the edge of the bed. No S/S of distress/SOB or chest pain noted, on Oxymizer 4 LPM, palpated found subcutaneous emphysema at right neck. Complaining hungry, milk provided, patient made aware that breakfast on the way. Instructed on POC and to call for assist PRN, will continue to monitor for changes Q1hr and PRN. Addendum: 11/03/19 at 0828 by CIERRA HSU RN RN On Pollard's catheter, urine drain well to bag, sediment noted, light pink color, will continue to monitor and care.
--- NOTE | 2019-11-03 08:26 | NUR ---
Patient sitting on the edge of the bed for having breakfast. HR 100-110 sinus tachycardia with PAT, PVC, while having activities, will continue to monitor and care, SBP 120-130 mmHg.
[2019-11-03] MEDS: amLODIPine BESYLATE 5 MG TAB PO SCH (08:41)
[2019-11-03] MEDS: ASPirin 81 mg TAB PO SCH (08:41)
--- NOTE | 2019-11-03 08:45 | NUR ---
Patient made aware that need to be NPO from now for CT chest with contrast. Medication given at this time as well.
--- NOTE | 2019-11-03 08:52 | NUR ---
IV insertion IV access obtained, via clean sterile technique by inserting 20 gauge catheter at right forearm after 1 attempt. IV secured properly. No trauma to site. Patient tolerated procedure well.
--- NOTE | 2019-11-03 09:30 | NUR ---
Dr. Roque at the bedside, seen and examined patient at this time, plan of care discussed with patient, received order to change Oxymizer to O2 NC 4 LPM, O2 saturation 94-96%. Received orders for transfer to Tele, PT evgerald, SS consult. Patient made aware and verbalized understanding.
[2019-11-03] MEDS ORDERED: AML5T PO (09:44)
[2019-11-03] MEDS ORDERED: FAMO-68 PO (09:44)
[2019-11-03] MEDS ORDERED: PRED20TA2 PO (09:44)
[2019-11-03] MEDS ORDERED: ALB5IS NEB (09:44)
[2019-11-03] MEDS ORDERED: GUAI-41 PO (09:44)
[2019-11-03] MEDS ORDERED: IPR002IS NEB (09:44)
[2019-11-03] MEDS ORDERED: ASPI81CH43 PO (09:44)
[2019-11-03] MEDS ORDERED: LEVO-28 PO (09:44)
[2019-11-03] MEDS ORDERED: ATOR20TA PO (09:47)
--- NOTE | 2019-11-03 09:49 | NUR ---
Per Dr. Roque, patient can be downgrade to Tele because pending D/C home and waiting for PT eval first. Addendum: 11/03/19 at 0952 by CIERRA HSU RN RN And still waiting for CT chest with contrast as well.
--- NOTE | 2019-11-03 09:57 | NUR ---
O2 saturation 96-98% with O2 NC 4LPM, decreased O2 NC to 2 LPM at this time per Dr. Roque, O2 saturation 93-94%, patient lying on the bed and sleeping, will continue to monitor and care.
[2019-11-03] MEDS: HEPARIN SODIUM (PORCINE) 5000 UNITS/ML 1ML VIAL SC SCH (10:00)
[2019-11-03] MEDS ORDERED: levoFLOXacin 500 MG TAB PO SCH (10:00)
[2019-11-03] MEDS ORDERED: IOHEXOL 350 MG/ML 100ML IJ ONE (10:28)
--- NOTE | 2019-11-03 10:38 | NUR ---
Patient was taken to the Radiology for CT chest with contrast via the hospital bed, connected to Monitor and O2 tank.
--- NOTE | 2019-11-03 11:20 | NUR ---
Patient came back from Radiology.
[2019-11-03] MEDS: BUDESONIDE (INHALATION) 0.5 MG/2 ML NEB NEB SCH (11:30)
--- NOTE | 2019-11-03 11:45 | NUR ---
Patient refused Heparin due to his urine is light pink, no active and CT chest result came back that he doesn't have PE.
--- NOTE | 2019-11-03 12:30 | NUR ---
Patient sitting at the edge of the bed for having Lunch. PT made aware about the CT chest result that negative for PE, will see patient after Lunch. Margarito made aware about discharge planning, his phone is , charging right now, patient stated that will call his friend to give him a ride.
--- NOTE | 2019-11-03 13:20 | NUR ---
Patient had BM, perineal care provided, partial linen changed. On O2 NC 2 LPM, O2 saturation 92%, RR 24-30 /min, HR 90-110/min. PT at the bedside at this time.
--- NOTE | 2019-11-03 13:45 | NUR ---
Called and talked to Dr. Jude MD made aware about PT eval, received order for D/C elias's catheter as well.
--- NOTE | 2019-11-03 13:48 | NUR ---
Called and left the message to [facility] sample case porter to call back regarding DME and HH information and also update new address [address], [place]. Waiting a c all back from backpackers manager.
--- NOTE | 2019-11-03 13:50 | NUR ---
Connected friend of patient to his room phone for giving a ride.
--- NOTE | 2019-11-03 14:00 | NUR ---
Elias catheter dc'd Order to discontinue elias catheter. Elias dc'd with clean technique following deflation of balloon. Patient tolerated well with no complaints of pain. Continue care.
--- NOTE | 2019-11-03 14:29 | NUR ---
Called [facility] for make an appointment, patient will have phone Follow up with Dr. Melanie Dunlap due to Covid-19 on 11/05/2019 at 2.15 pm address [address], [place], [address]
--- NOTE | 2019-11-03 15:07 | NUR ---
Called and spoke to Taty (TRINITY) regarding changing new address to [address], [facility], [address], Taty will call [facility] rehabilitation case coordinator, waiting for an update. Pending for yennifer (CELSO).
--- NOTE | 2019-11-03 15:11 | NUR ---
Faxed [facility], SWEETIE de oliveira order to [facility] earlier-called [facility] and requested to speak with Water Plant Pump Operator regarding the arrangements-Kelly will give me a call back.
--- NOTE | 2019-11-03 15:19 | NUR ---
Received a call back from Taty TODD), patient will discharge home with [facility] ([phone]). Patient already has his O2 tank at the bedside, and FWW will delivered at the hospital around 7pm. Patient made aware, called and left the message to Jonatan (his friend) about estimate time for D/C.
--- NOTE | 2019-11-03 15:24 | NUR ---
Patient had BM and passed urine after elias's catheter removed, no complaining of pain or difficulty of passing urine noted. Will continue to monitor and care.
--- NOTE | 2019-11-03 15:25 | NUR ---
I received a call from [facility] [employer] Sales Representative Kelly. She said [facility] will follow patient-first visit in 24-48 hours phone number [phone]. She will arrange walker/BSC through [facility]-walker delivery will take up to 4 hours-to be delivered to bedside. Phone number for [facility] is [phone]-I relayed this information to nurse Juliet.
--- NOTE | 2019-11-03 15:40 | NUR ---
Tonio Gonzalez NP to call back regarding Short run VT 7 beats, patient awake, no complaining of any symptoms, lying on the bed. Waiting a call back. Addendum: 11/03/19 at 1611 by CIERRA HSU RN RN K4.1. Mg 2.3 from Lab this morning
--- NOTE | 2019-11-03 16:41 | NUR ---
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
--- NOTE | 2019-11-03 17:20 | NUR ---
Dr. Julian at the bedside, seen and examined patient at this time, plan of care discussed with patient, no new order at this time, MD made aware with discharge planning, possible D/C today.
--- NOTE | 2019-11-03 17:44 | NUR ---
At 17.38 pm, EKG showed A. Fib HR 140-150/min about 1 minute and it turned back to SR with PAC, called and spoke to Dr. Jude MD made aware about Lab result this morning, K 4.1, Mg 2.3, Ca 7.9. No new order for this time, MD will call back in a bit. Will continue to monitor and care.
--- NOTE | 2019-11-03 18:00 | NUR ---
At 17.57pm, EKG showing A.Fib HR 130-150/min, BP 112/63 mmHg, called and talked to Dr. Jude MD will come to unit.
--- NOTE | 2019-11-03 18:35 | NUR ---
Dr. Roque at the unit, seeing patient for A Fib HR 130-150 /min turned back to SR and Sinus tachycardia.
[2019-11-03] MEDS ORDERED: DILT40TA PO (18:36)
[2019-11-03] MEDS ORDERED: APIX5TAB PO (18:36)
--- NOTE | 2019-11-03 18:41 | NUR ---
Patient sitting at the edge of the bed for having Dinner, HR 110 with S. tachycardia, O2 saturation 90-93% with O2 NC 2 LPM.
[2019-11-03] MEDS ORDERED: POTA1TAB4 PO (18:45)
[2019-11-03] MEDS ORDERED: FURO1TAB33 PO (18:45)
[2019-11-03] MEDS ORDERED: dilTIAZem HCL 60 MG TAB ONE (18:52)
--- NOTE | 2019-11-03 18:55 | NUR ---
HR 110-120 with sinus tachycardia, received order for Cardizem 30 mg PO once, medication given.
[2019-11-03] MEDS ORDERED: dilTIAZem HCL 60 MG TAB PO ONE (19:00)
--- NOTE | 2019-11-03 19:30 | NUR ---
received pt from day rn rn poc reviewed
--- NOTE | 2019-11-03 19:30 | NUR ---
received pt from day rn poc reviewed
--- NOTE | 2019-11-03 21:15 | NUR ---
pt discharged with all property cell phone home o2 tank and tubing wallet, bedside commode, and walker, all questions and concerns addressed,reminded pt to call 911 or return to er, pt taken to waiting family car
== END 2019-11-03 21:00 | disposition home health service (06) | DRG 189 ==
LOC: EDBD 19:24 → ER 19:24 → TELE-WESTW 19:25 → DOU IN ICU 10-27 21:15
PROVIDERS: ADMIT Nurse Practitioner; ATTEND Family Medicine
PROC: 0W9B30Z Drainage of Left Pleural Cavity with Drainage Device, Percutaneous Approach (ICD-10-PCS; principal; 2019-10-26)
DX: J96.21 Acute and chronic respiratory failure with hypoxia (principal); J44.1 Chronic obstructive pulmonary disease with (acute) exacerbation; J93.9 Pneumothorax, unspecified; N17.9 Acute kidney failure, unspecified; J96.22 Acute and chronic respiratory failure with hypercapnia; J20.9 Acute bronchitis, unspecified; N18.3 Chronic kidney disease, stage 3 (moderate); E87.5 Hyperkalemia; F17.210 Nicotine dependence, cigarettes, uncomplicated; I12.9 Hypertensive chronic kidney disease with stage 1 through stage 4 chronic kidney disease, or unspecified chronic kidney disease; I48.0 Paroxysmal atrial fibrillation; T38.0X5A Adverse effect of glucocorticoids and synthetic analogues, initial encounter; Z90.49 Acquired absence of other specified parts of digestive tract; Y92.89 Other specified places as the place of occurrence of the external cause
CPT/HCPCS: 32551; 36415; 36600; 71045; 71275; 78582; 80048; 80053; 82805; 82962; 83036; 83605; 83735; 83880; 84484; 85007; 85025; 85027; 85379; 85610; 85730; 87040; 87081; 87804; 93005; 93306; 93970; 94640; 94644; 96374; 97163; G0378; J1815; J2543; Q9956